=== PATIENT | female | born 1955 | race Caucasian/White ===

== ENCOUNTER → 2018-03-30 | Day surgery (SDC) | payer MEDICARE ==
[~2018-03-30] MED LIST: BUPIVACAINE HCL 0.5% INJ 30 ML VIAL INJ ONE; CEFAZOLIN SOD 1 GM VIAL ONE; DEXAMETHASONE SOD PHOS INJ 4 MG/ML VIAL ONE; FENTANYL CITRATE/PF 100MCG/2 ML INJ ONE; FIORINAL WITH1 EACH PO; HYDRALAZINE HCL 20 MG/ML VIAL ONE; IRON PO; LASIX20 MG PO; LEVOTHYROXINE100 MC1 PO; LIDOCAINE HCL 2% LOCAL INJ 5 ML SDV VIAL INJ ONE; LISINOPRIL10 MG PO; LORAZEPAM2 MG PO; MIDAZOLAM HCL 2 MG/2 ML VIAL ONE; MORPHINE SULFATE 2 MG/ML SYR ONE; NORCO 10-325 T1 EACH PO; ONDANSETRON HCL INJ 2 MG/ML VIAL ONE; PROPOFOL IV EMULSION 10 MG/ML 20 ML VIAL ONE; PROZAC20 MG PO; SEVOFLURANE INHAL SOLN 250 ML PEN BTL ONE; SIMVASTATIN40 MG PO; TEMAZEPAM30 MG PO; TIZANIDINE HCL4 MG PO; TRAMADOL; TRAZODONE HCL50 MG PO
[2018-03-30 12:25] VITALS: BP 134/81
--- NOTE | 2018-03-30 13:38 | Operative Report ---
DATE OF PROCEDURE: March 30, 2018 SENIOR BUSINESS MANAGER: Brain Akbar PA-C The patient was brought to the operating room for induction of anesthesia. Throughout this case, my PA's assistance was necessary for retraction of soft tissue and positioning of the extremity. This allows for efficient and technically successful execution of the operation and is considered medically necessary. PREOPERATIVE DIAGNOSIS: Left distal radius fracture. POSTOPERATIVE DIAGNOSIS: Left distal radius fracture. PROCEDURE: Open reduction and internal fixation left distal radius. INDICATIONS: The patient is a 62-year-old lady who has a displaced and shortened left distal radius fracture. The findings and options have been discussed. We plan on an open reduction with internal fixation. The risks and benefits have been explained. She states she understands and wishes to proceed. DESCRIPTION OF PROCEDURE: The patient was brought to the operating room. She was placed under general anesthetic, and her left upper extremity was prepped and draped in a sterile manner. A preoperative time out was performed. The extremity was exsanguinated, and a proximal tourniquet was inflated to 250 mmHg. A volar approach through the floor of the flexor carpi radialis tendon was initiated. Care was taken to avoid injury to the palmar cutaneous branch of the median nerve. The distal radius was carefully exposed. A C-arm image intensifier was used to assist in performing an anatomic closed reduction. A [employer] volar locking plate was then placed onto the distal radius. Again, intraoperative C-arm images were taken to confirm satisfactory positioning of the plate and no interarticular penetration of the hardware. A combination of compression and locking screws was placed. Nice reduction of the fracture and positioning of the hardware were accomplished. The wound was irrigated. The wound was closed in the standard manner. Subcuticular Vicryl and nylon stitches were used to close the skin. About 8 mL of half percent Marcaine was used to infiltrate the skin. A sterile bandage and a sugar-tong splint were applied. The patient was extubated and transported to the recovery room in stable condition. There was no blood loss, and all needle and sponge counts were correct. Job#: [id number]
--- OUTSIDE RECORDS SUMMARY | 2018-04-06 12:16 | XMS REPORT ---
Author Author [facility] Address Unknown Phone Unavailable Care Team Providers Care Instrument And Electrical Technician Name Role Phone Unavailable Unavailable Payers Payer Name Policy Type Policy Number Effective Date Expiration Date Problems This patient has no known problems. Allergies, Adverse Reactions, Alerts Allergy Name Allergy Type Status Severity Reaction(s) Onset Date Inactive Date Treating Clinician Comments No Known Allergies DA Active U 2012-03-26 00:00:00 Medications This patient has no known medications.
== END | disposition home or self-care (01) ==
LOC: OR 09:14
PROVIDERS: ATTEND Specialist
DX: S52.532A Colles' fracture of left radius, initial encounter for closed fracture (principal); S52.225A Nondisplaced transverse fracture of shaft of left ulna, initial encounter for closed fracture; M06.9 Rheumatoid arthritis, unspecified; M19.90 Unspecified osteoarthritis, unspecified site; I10 Essential (primary) hypertension; E78.5 Hyperlipidemia, unspecified; E03.9 Hypothyroidism, unspecified; K21.9 Gastro-esophageal reflux disease without esophagitis; D64.9 Anemia, unspecified; R42 Dizziness and giddiness; Z01.810 Encounter for preprocedural cardiovascular examination
CPT/HCPCS: 25607; 93005; C1713 ×7; J0360; J0690; J1100; J2001; J2250; J2270; J2405; 76000